=== PATIENT | female | born 1985 | race African-American/Black ===

== ENCOUNTER 2017-11-29 07:07 | Emergency (ER) | payer OTHER ==
[2017-11-29 07:35] LABS: URINE HCG POC HCG NEGATIVE (Negative)
[2017-11-29 08:07] LABS: BILIRUBIN,URINE NEGATIVE (NEG); COLOR,URINE YELLOW; GLUCOSE,URINE NEGATIVE (NEG); NITRITE,URINE NEGATIVE (NEG); PH,URINE 6.5; PROTEIN,URINE 30 mg/dL (NEG-TRACE)
[2017-11-29 08:18] LABS: BACTERIA,URINE FEW /HPF (0-FEW); CLARITY,URINE HAZY; SQUAMOUS EPITHELIAL CELL,UR MOD /LPF; WBC,URINE 20-40 /HPF (0-4)
== END 2017-11-29 08:35 | disposition home or self-care (01) ==
LOC: ER 07:07
DX: N39.0 Urinary tract infection, site not specified (principal)
CPT/HCPCS: 81001; 81025; 99283

== ENCOUNTER 2019-05-16 09:11 | Emergency (ER) | payer MEDICAID, OTHER ==
[~2019-05-16] VITALS: Ht 160 cm; Wt 70.3 kg
[~2019-05-16 09:11] MED LIST: NITR100C62 PO
[2019-05-16 09:33] VITALS: BP 117/75
[2019-05-16] MEDS ORDERED: DEXAMETHASONE 4 MG TABLET PO STA (09:37)
--- NOTE | 2019-05-16 09:37 | PHYS DOC ---
Past Medical History Past Medical History: No Pertinent History Past Surgical History: Alcohol Use: None Drug Use: None Adult General Chief Complaint Chief Complaint: COUGH HPI HPI Patient is a 33 year old female who presents with cough this been ongoing for 1 month, fever that started this weekend, chills, headache, sore throat, runny nose, cough, loss of appetite, fatigue. The patient is drinking a [employer] coffee when I walked into the room and is able to keep fluids down. Denies any pain at this time. Review of Systems Review of Systems Constitutional: Reports fever or chills [] Eyes: Denies change in visual acuity, redness, or eye pain [] HENT: Reports runny nose, nasal congestion and sore throat [] Respiratory: Reports cough and mild shortness of breath [] Cardiovascular: No additional information not addressed in HPI [] GI: Denies abdominal pain, nausea, vomiting, bloody stools or diarrhea [] : Denies dysuria or hematuria [] Musculoskeletal: Denies back pain or joint pain [] Integument: Denies rash or skin lesions [] Neurologic: Reports headache, denies focal weakness or sensory changes [] Endocrine: Denies polyuria or polydipsia [] Complete systems were reviewed and found to be within normal limits, except as documented in this note. Current Medications Current Medications Current Medications Medications (Trade) Dose Ordered Sig/Olga Start Time Stop Time Status Last Admin Dose Admin Dexamethasone (Decadron) 10 mg 1X STAT 05/16/19 09:37 05/16/19 09:40 DC 05/16/19 09:57 10 MG Allergies Allergies Allergies Coded Allergies Type Severity Reaction Last Updated Verified No Known Drug Allergies 07/29/13 No Physical Exam Physical Exam Constitutional: Well developed, well nourished, no acute distress, non-toxic appearance. [] HENT: Normocephalic, atraumatic, bilateral external ears normal, oropharynx moist, no oral exudates, nose normal. [] Eyes: PERRLA, EOMI, conjunctiva normal, no discharge. [] Neck: Normal range of motion, no tenderness, supple, no stridor. [] Cardiovascular:Heart rate regular rhythm, no murmur [] Lungs & Thorax: Bilateral breath sounds clear to auscultation [] Abdomen: Bowel sounds normal, soft, no tenderness, no masses, no pulsatile masses. [] Skin: Warm, dry, no erythema, no rash. [] Back: No tenderness, no CVA tenderness. [] Extremities: No tenderness, no cyanosis, no clubbing, ROM intact, no edema. [] Neurologic: Alert and oriented X 3, normal motor function, normal sensory function, no focal deficits noted. [] Psychologic: Affect normal, judgement normal, mood normal. [] Current Patient Data Vital Signs Vital Signs Date Time Temp Pulse Resp B/P (MAP) Pulse Ox O2 Delivery O2 Flow Rate FiO2 05/16/19 09:33 98.9 108 16 117/75 (89) 97 Room Air 98.9 Lab Values Laboratory Tests Test 05/16/19 09:30 Influenza Type A Antigen Negative (NEGATIVE) Influenza Type B Antigen Negative (NEGATIVE) EKG EKG [] Radiology/Procedures Radiology/Procedures [][facility] [address] [place] [address] IMAGING REPORT Signed PATIENT: KELLI CLEMONS GACCOUNT: [id number] : 1985 LOCATION: ER AGE: 33 SEX: F EXAM STATUS: REG ER ORD. PHYSICIAN: RIVERA RUIZ APRN REASON: cough, fever PROCEDURE: CHEST PA & LATERAL Indication: Cough and fever. TECHNIQUE: 2 views of the chest COMPARISON: None FINDINGS: Patchy opacities seen in the left upper lobe. Heart is normal in size. Right lung is clear. No pneumothorax or pleural effusion. Visualized bony thorax within normal limits. Left lower lobe calcified adenoma. IMPRESSION: Findings of left upper lobe pneumonia. Follow-up imaging after medical therapy to ensure resolution. Electronically signed by: Keegan Mantilla DO (05/16/2019 9:57 AM) [facility] DICTATED and SIGNED BY: KEEGAN MANTILLA DO DATE: 05/16/19 0957 Course & Med Decision Making Course & Med Decision Making Pertinent Labs and Imaging studies reviewed. (See chart for details) Will get Flu test, and Chest x-ray. Will also give Decadron. Chest X-ray shows Left upper lobe pneumonia. Will treat with Doxycycline. Flu test is negative. Dragon Disclaimer Dragon Disclaimer This electronic medical record was generated, in whole or in part, using a voice recognition dictation system. Departure Departure Impression: Primary Impression: Pneumonia Disposition: 01 HOME, SELF-CARE Condition: STABLE Referrals: NO PCP (PCP) Patient Instructions: Pneumonia, Adult Additional Instructions: Thank you for visiting [facility]. We appreciate you trusting us with your care. If any additional problems come up don't hesitate to return to visit us. Please follow up with your primary care provider so they can plan additional care if needed and know about the problem that you had. If symptoms worsen come back to the Emergency Department. Any concerning symptoms that start such as chest pain, shortness of air, weakness or numbness on one side of the body, running high fevers or any other concerning symptoms return to the ER. You have been prescribed an antibiotic today to help fight your infection. Please take all of the antibiotic as directed. If after 48 hours the infection is not improving, please return for more care. If the infection worsens, return to ER for additional care. Scripts Doxycycline Hyclate (DOXYCYCLINE HYCLATE) 100 Mg Capsule 1 CAP PO BID for 7 Days, #14 CAP Prov: RIVERA RUIZ APRN 05/16/19 Problem Qualifiers Primary Impression: Pneumonia Pneumonia type: due to unspecified organism Laterality: left Lung location: upper lobe of lung Qualified Codes: J18.9 - Pneumonia, unspecified organism RIVERA RUIZ APRN May 16, 2019 09:37
--- NOTE | 2019-05-16 09:59 | RAD ---
Indication: Cough and fever. TECHNIQUE: 2 views of the chest COMPARISON: None FINDINGS: Patchy opacities seen in the left upper lobe. Heart is normal in size. Right lung is clear. No pneumothorax or pleural effusion. Visualized bony thorax within normal limits. Left lower lobe calcified adenoma. IMPRESSION: Findings of left upper lobe pneumonia. Follow-up imaging after medical therapy to ensure resolution. Electronically signed by: Keegan Arita DO (05/16/2019 9:57 AM) [facility]
[2019-05-16] MEDS ORDERED: DOXY100C2 PO (10:03)
[2019-05-16 10:15] LABS: INFLUENZA A PATIENT NEGATIVE (NEGATIVE); INFLUENZA B PATIENT NEGATIVE (NEGATIVE)
== END 2019-05-16 10:21 | disposition home or self-care (01) ==
LOC: ER 09:11
DX: J18.9 Pneumonia, unspecified organism (principal)
CPT/HCPCS: 71046; 87804; 99285; J8540

== ENCOUNTER 2019-07-10 22:28 | Emergency (ER) | payer MEDICAID, OTHER ==
[~2019-07-10 22:28] MED LIST changes: +DOXY100C2 PO
[2019-07-10 22:45] VITALS: BP 155/88
[2019-07-10] MEDS ORDERED: ACETAMINOPHEN/CODEINE 300/30MG TABLET. PO ONE (23:30)
--- NOTE | 2019-07-10 23:47 | PHYS DOC ---
Past Medical History Past Medical History: No Pertinent History Past Surgical History: Alcohol Use: None Drug Use: None Adult General Chief Complaint Chief Complaint: SORE THROAT [facility] HPI Patient is a 33 year old female who presents to the emergency department with complaints of a sore throat for the last 3 or 4 days, and left ear discomfort. Patient states she has not been able to hear out of her left ear and that she feels pressure in her left ear for the last few days. In addition patient complains of a dry cough, and nasal congestion. She denies any fever, abdominal pain, nausea, vomiting, diarrhea, rash, shortness of breath, or wheezing. She denies any known exposure to strep pharyngitis or influenza. Patient currently rates pain a 5 out of 10 on the pain scale, she denies any alleviating, her pain is worse when she swallows. All other ROS is neg unless otherwise noted in HPI. Review of Systems Review of Systems See Above Current Medications Current Medications Current Medications Medications (Trade) Dose Ordered Sig/Olga Start Time Stop Time Status Last Admin Dose Admin Acetaminophen/ Codeine Phosphate (Tylenol #3) 1 tab 1X ONCE 07/10/19 23:30 07/10/19 23:31 DC 07/10/19 23:26 1 TAB Acetaminophen/ Hydrocodone Bitart (Lortab 5/325) 1 tab 1X ONCE 07/11/19 00:30 07/10/19 23:58 DC Allergies Allergies Allergies Coded Allergies Type Severity Reaction Last Updated Verified No Known Drug Allergies 07/29/13 No Physical Exam Physical Exam See Above Constitutional: Well developed, well nourished, no acute distress, non-toxic appearance. [] HENT: Normocephalic, atraumatic, bilateral external ears normal, bilateral TMs normal, mild erythema of posterior pharynx, oropharynx moist, no oral exudates, nose normal. [] Eyes: PERRLA, EOMI, conjunctiva normal, no discharge. [] Neck: Normal range of motion, no tenderness, supple, no stridor. [] Cardiovascular:Heart rate regular rhythm, no murmur [] Lungs & Thorax: Bilateral breath sounds clear to auscultation, Respirations even and unlabored, no retractions, no respiratory distress [] Skin: Warm, dry, no erythema, no rash. [] Back: No tenderness Extremities: No cyanosis, ROM intact, no edema. [] Neurologic: Alert and oriented X 3, no focal deficits noted. [] Psychologic: Affect normal, judgement normal, mood normal. [] Current Patient Data Vital Signs Vital Signs Date Time Temp Pulse Resp B/P (MAP) Pulse Ox O2 Delivery O2 Flow Rate FiO2 07/10/19 23:26 Room Air 07/10/19 22:45 98.5 88 12 155/88 (110) 99 98.5 Lab Values Laboratory Tests Test 07/10/19 22:51 Group A Streptococcus Rapid Negative (NEGATIVE) EKG EKG [] Radiology/Procedures Radiology/Procedures [] Course & Med Decision Making Course & Med Decision Making Pertinent Labs and Imaging studies reviewed. (See chart for details) [] Dragon Disclaimer Dragon Disclaimer This electronic medical record was generated, in whole or in part, using a voice recognition dictation system. Departure Departure Impression: Primary Impression: Pharyngitis Additional Impression: URI with cough and congestion Disposition: 01 HOME, SELF-CARE Condition: STABLE Referrals: NO PCP (PCP) Patient Instructions: Upper Respiratory Infection, Adult, [id number], Viral and Bacterial Pharyngitis, [id number] Additional Instructions: Fill prescription(s) and use as directed. Recommend use of a Cool mist humidifier in room at bedtime. Alternate Tylenol or ibuprofen as needed for reyes n/fever. Increase clear fluids. Avoid airway triggers such as smoke, fragrance, dust, and pollen. May take [id number] cough suppressants as needed. Follow-up with your primary care doctor if symptoms persist, return to the ER if symptoms worsen. Problem Qualifiers Primary Impression: Pharyngitis Pharyngitis/tonsillitis etiology: unspecified etiology Qualified Codes: J02.9 - Acute pharyngitis, unspecified JINNY RICHARDS DATA SPECIALIST Jul 10, 2019 23:47
[2019-07-11] MEDS ORDERED: HYDROcodone/APAP 5/325MG 1 TAB TABLET PO ONE (00:30)
== END 2019-07-10 23:56 | disposition home or self-care (01) ==
LOC: ER 22:28
DX: J02.9 Acute pharyngitis, unspecified (principal)
CPT/HCPCS: 87070; 87880; 99283